=== PATIENT | female | born 1985 | race Asian ===

== ENCOUNTER 2019-06-29 10:43 | Outpatient (CLI) | payer BC ==
[~2019-06-29] VITALS: Ht 160 cm; Wt 63.6 kg
--- NOTE | 2019-06-29 11:20 | NUR ---
Patient ambulatory to LR3, changed into gown, FHR/TOCO monitors placed and explained. Patient states she has had irregular contractions and having some bleeding after being checked on wednesday. Plan of care discussed. SVE-/-2 and amnio test negative and small amount of blood/mucus present of blood. Dr. Horton called and order to discharge home.
[2019-06-29] MEDS ORDERED: PRENATAL MVI (11:31)
[2019-06-29] MEDS ORDERED: FERROUSGLUC256MG (11:31)
[2019-06-29 11:45] VITALS: BP 117/73; PULSE 69; TEMP 98.2
--- NOTE | 2019-06-29 12:00 | NUR ---
Patient given discharge instructions- keep appts, return to hospital if heavier bleeding/leaking of fluid/regular painful contractions/decreased FM. Patient verbalizes understanding and signs discharge papers. Questions answered 1204: Patient off monitor. 1210: Patient ambulates off unit with parents.
== END 2019-06-29 12:10 | disposition home or self-care (01) ==
LOC: LDRO 10:43
DX: O62.9 Abnormality of forces of labor, unspecified (principal); Z3A.38 38 weeks gestation of pregnancy

== ENCOUNTER 2019-07-08 05:09 | Inpatient (IN) | payer BC ==
[2019-07-08] VITALS (18 sets, daily range): BP systolic 84–131; BP diastolic 48–90; PULSE 63–82; TEMP 97.6–99
[~2019-07-08] VITALS: Ht 160 cm; Wt 64.1 kg
[~2019-07-08 05:09] MED LIST: FERROUSGLUC256MG; PRENATAL MVI
--- NOTE | 2019-07-08 05:30 | NUR ---
G1 at 39 weeks and 4 days arrives to unit with complaint of contractions since midnight. Pt reports feeling good movement, denies LOF, and reports some bloody show. Pt oriented to room, bed in low and locked position, call light within reach. Pt changed into clean gown. Pt denies any problems this . US and toco explained and applied. SVE 5-6/80/-1, membranes intact, bloody show on glove. Pt visibily uncomfortable but breathing through contractions well. Plan of care reviewed with patient and spouse.
--- NOTE | 2019-07-08 05:55 | NUR ---
18 G IV started in left wrist. Admission labs obtained off IV start. Lactated Ringers infusing to gravity.
[2019-07-08 06:06] LABS: BASO % 0.3 % (0.0-2.0); EOS % 0.1 % (0-4.0); GRAN # 9.3 (1.4-6.5); GRAN % 75.9 % (42.2-75.2); HEMOGLOBIN 11.9 g/dl (12.5-16.0); LYMPH # 2.4 (1.2-3.4); LYMPH % 19.3 % (20.0-51.0); MEAN CELL VOLUME 96 fl (80.0-100.0); MEAN CORPUSCULAR HEMOGLOBIN 34 pg (27.0-31.0); MEAN CORPUSCULAR HGB CONC 35 g/dl (33.0-37.0); MEAN PLATELET VOLUME 10.6 fl (7.4-10.4); MONO # 0.5 (0.1-0.6); MONO % 4.2 % (1.7-9.3); PLATELET COUNT 164 K/mm3 (130-400); RED BLOOD COUNT 3.54 M/mm3 (4.10-5.30); REDCELL DISTRIBUTION WIDTH-CV 12.3 % (11.5-14.5)
[2019-07-08 06:28] LABS: HEMATOCRIT 33.9 % (37.0-47.0)
--- NOTE | 2019-07-08 07:53 | NUR ---
DR CORCORAN IN ROOM AT 0730. PATIENT PUSHING FROM [id number]. INTERMITTENT TRACING WHILE PUSHING. INDETERMINITE BASELINE. BY DR CORCORAN AT 0753. TO MOTHERS CHEST. FOB CUT CORD. NREBORN TO CARE OF DAVID MEDELLIN RN. PLACENTA SPON DELIVERED AT 0755. PITOCIN AT 333 MLS/ HR. FUNDAL MASSAGE PROVIDED. 2ND DEGREE PERINEAL LACERATION- REPAIRED BY DR CORCORAN. ICE PACK TO PERINEUM. RECOVERY STARTED AT 0815.
--- NOTE | 2019-07-08 11:30 | NUR ---
To bathroom via wheel chair. Voids small amount of clear yellow urine noted. Mary-care done and explained to patient. To room via wheel chair with family. Assisted to bed, alert. Encouraged to call when having to go to the bathroom.
--- NOTE | 2019-07-08 15:19 | NUR ---
Rests in bed, alert. Ambulates to the bathroom and back.
[2019-07-09] VITALS: BP 108/60; PULSE 68; TEMP 97.8
[2019-07-09 04:00] VITALS: BP 95/56; PULSE 63; TEMP 98.1
--- NOTE | 2019-07-09 07:30 | NUR ---
0800 Rests in bed, alert. Denies any discomfort or pain. Family at bedside.
[2019-07-09 08:00] VITALS: BP 97/51; PULSE 79; TEMP 98
[2019-07-09 17:00] VITALS: BP 111/50; PULSE 77; TEMP 98.8
[2019-07-09 21:00] VITALS: BP 106/56; PULSE 71; TEMP 98.3
[2019-07-10] MEDS ORDERED: IBU800 M1 PO (08:40)
[2019-07-10] MEDS ORDERED: PERCOCET 325 MG1 TA2 PO (08:41)
[2019-07-10 10:25] VITALS: BP 110/60; PULSE 69; TEMP 98.6
== END 2019-07-10 14:30 | disposition home or self-care (01) | DRG 807 ==
LOC: LDRO 05:09 → LDR 05:35 → OB 05:35
PROVIDERS: ADMIT Obstetrics & Gynecology
PROC: 10E0XZZ Delivery of Products of Conception, External Approach (ICD-10-PCS; principal; 2019-07-08)
PROC: 0KQM0ZZ Repair Perineum Muscle, Open Approach (ICD-10-PCS; 2019-07-08)
DX: O99.02 Anemia complicating childbirth (principal); Z37.0 Single live birth; O69.81X0 Labor and delivery complicated by cord around neck, without compression, not applicable or unspecified; O70.1 Second degree perineal laceration during delivery; Z3A.39 39 weeks gestation of pregnancy
CPT/HCPCS: J2590; J7120